=== PATIENT | male | born 1990 | race Caucasian/White ===

== ENCOUNTER 2023-04-01 19:07 | Emergency (ER) | payer BC ==
[2023-04-01] MEDS ORDERED: Sulfameth/Trimethoprim DS 800-160mg TAB ONE (20:05)
[2023-04-01] MEDS ORDERED: Cephalexin 250 MG CAP ONE (20:06)
== END 2023-04-01 20:13 | disposition home or self-care (01) ==
LOC: NAV ERS 19:07
DX: L03.116 Cellulitis of left lower limb (principal); F17.210 Nicotine dependence, cigarettes, uncomplicated
CPT/HCPCS: 99283